=== PATIENT | male | born 1980 | race Caucasian/White ===

== ENCOUNTER 2018-06-03 13:32 | Emergency (ER) | payer OTHER ==
[~2018-06-03] VITALS: Ht 177.8 cm; Wt 90.7 kg
[2018-06-03] MEDS ORDERED: SULFAMETH/TRIMETH 800/160 MG TABLET PO ONE (14:00)
--- NOTE | 2018-06-03 14:13 | NUR ---
Patient discharged to home in stable conditon. Written and verbal after care instructions given. Patient verbalizes understanding of instructions.
== END 2018-06-03 14:13 | disposition home or self-care (01) ==
LOC: ER 13:32
DX: Z48.01 Encounter for change or removal of surgical wound dressing (principal); L02.414 Cutaneous abscess of left upper limb; Z76.0 Encounter for issue of repeat prescription; Z59.0 Homelessness
CPT/HCPCS: A4217; A4663

== ENCOUNTER 2019-11-29 14:08 | Emergency (ER) | payer OTHER ==
[~2019-11-29] VITALS: Ht 177.8 cm; Wt 79.4 kg
[2019-11-29] MEDS ORDERED: CEFTRIAXONE 1 G VIAL IM ONE (14:15)
[2019-11-29] MEDS ORDERED: LIDOCAINE 1%-EPI 1:100,000 20 ML VIAL TP ONE (14:15)
[2019-11-29] MEDS ORDERED: SULFAMETH/TRIMETH 800/160 MG TABLET PO ONE (14:15)
[2019-11-29] MEDS ORDERED: CEFTRIAXONE 1 G VIAL ONE (14:20)
[2019-11-29] MEDS ORDERED: LIDOCAINE 1%-EPI 1:100,000 20 ML VIAL ONE (14:20)
[2019-11-29] MEDS ORDERED: LIDOCAINE HCL 1% 20 ML VIAL ONE (14:21)
[2019-11-29] MEDS ORDERED: SULFAMETH/TRIMETH 800/160 MG TABLET ONE (14:26)
[2019-11-29] MEDS ORDERED: IBUPROFEN 600 MG TABLET ONE (14:26)
[2019-11-29] MEDS ORDERED: IBUPROFEN 600 MG TABLET PO ONE (14:30)
--- NOTE | 2019-11-29 15:00 | NUR ---
Patient given written and verbal discharge instructions. Patient verbalizes understanding of instructions. Patient is ambulatory with steady gait. Refuses offer of senior living placement. Patient given list of available shelters in surrounding area.
[2019-11-29 15:13] VITALS: BP 110/77
== END 2019-11-29 15:14 | disposition home or self-care (01) ==
LOC: ER 14:08
DX: L02.416 Cutaneous abscess of left lower limb (principal); L03.116 Cellulitis of left lower limb; G71.00 Muscular dystrophy, unspecified; F11.10 Opioid abuse, uncomplicated; S71.132S Puncture wound without foreign body, left thigh, sequela; X78.8XXS Intentional self-harm by other sharp object, sequela; Z59.0 Homelessness
CPT/HCPCS: 10060; 96372; 99283; J0696; J3490 ×2; A4663